=== PATIENT | male | born 1940 | race Caucasian/White ===

== ENCOUNTER 2023-06-15 09:25 | Inpatient (IN) ==
[2023-06-15 10:24] LABS: Venous Bicarbonate HCO3 27.8 mmol/L (24-28)
[2023-06-15 10:28] LABS: Hematocrit 36.6 % (38-53); Hemoglobin 12.8 g/dL (13.2-16.3); Mean Corpuscular Hemoglobin 30.3 pg (27-33); Mean Corpuscular Volume 86.6 fL (80-97); Mean Platelet Volume 7.3 fL (7.5-11.2); Platelet Count 267 10^3/uL (150-450); Red Blood Count 4.22 10^6/uL (4.06-5.63); Red Cell Distribution Width 13.6 % (12-17); White Blood Count 31.2 10^3/uL (3.6-10.2)
[2023-06-15 10:47] LABS: Albumin 3.6 g/dL (3.2-5.2); Albumin/Globulin Ratio 1.1 (1-3); Calcium 10.1 mg/dL (8.6-10.3); Creatinine, Serum 0.67 mg/dL (0.67-1.17); Globulin 3.3 g/dL (2-4); Potassium 4.4 mmol/L (3.5-5.0); Total Bilirubin 1.1 mg/dL (0.2-1.0); Total Protein 6.9 g/dL (6.4-8.9); eGFR CKD-EPI 93.8 (>60)
[2023-06-15 10:51] LABS: ABS Lymphocytes 0.5 10^3/uL (1.0-4.8); ABS Neutrophils 29.6 10^3/uL (1.5-7.6); Eosinophil % 0.1 %; Lymphocyte % 1.7 %
[2023-06-15 10:59] LABS: Urine Appearance Clear; Urine Bilirubin Negative (Negative); Urine Blood Negative (Negative); Urine Color Light-Yellow; Urine Glucose Trace (Negative); Urine Ketones Negative (Negative); Urine Nitrite Negative (Negative); Urine Protein Negative (Negative); Urine Specific Gravity 1.007 (1.002-1.030); Urine Urobilinogen Negative (Negative); Urine pH 6.5 (5.0-8.0)
[2023-06-15] MEDS: Lactated Ringers 1000 ml BAG 1,000 ML IV ONE ×4 (11:09→20:21)
[2023-06-15 11:18] LABS: TSH Ultra Thyroid Stim Horm 0.6 mcIU/mL (0.34-5.60)
[2023-06-15 11:20] LABS: Free T4 1.11 ng/dL (0.61-1.12)
[2023-06-15 11:32] LABS: Urine Bacteria Absent /HPF (Absent); Urine Red Blood Cell Trace(0-2/hpf) /HPF (0-Trace); Urine Squamous Epithelial Cell Present /HPF (Absent); Urine White Blood Cell 2+(11-20/hpf) /HPF (0-Trace)
[2023-06-15] MEDS: Piperacillin/Tazobac 3.375 BAG 3.375 GM/100 ML BAG IV ONE (11:54)
[2023-06-15] MEDS: Vancomycin 1,500 MG in NS 0.9% 250 ml 250 ML IVPB ONE (12:38)
[2023-06-15] MEDS ORDERED: Vancomycin per Pharmacy 1 EA NOTE FOLLOW UP SCH (14:00)
[2023-06-15] MEDS ORDERED: Zosyn per Pharmacy NOTE FOLLOW UP SCH (14:00)
[2023-06-15] MEDS: ZOSYN 3.375 GM Q8H per EXTENDED INFUSION IV SCH (19:23)
[2023-06-15] MEDS: Enoxaparin 40 MG/0.4 ML SYR SUBCUT SCH (20:21)
[2023-06-16] MEDS: Vancomycin 1000 MG in NS 0.9% 250 ML IVPB SCH (00:03)
[2023-06-16] MEDS: ZOSYN 3.375 GM Q8H per EXTENDED INFUSION IV SCH (03:38)
[2023-06-16 06:28] LABS: ABS Lymphocytes 0.9 10^3/uL (1.0-4.8); ABS Monocytes 1.3 10^3/uL (0.0-1.1); ABS Neutrophils 16.8 10^3/uL (1.5-7.6); Eosinophil % 0.1 %; Hematocrit 29.8 % (38-53); Hemoglobin 10.7 g/dL (13.2-16.3); Lymphocyte % 4.7 %; Mean Corpuscular Hemoglobin 30.7 pg (27-33); Mean Corpuscular Hgb Conc 35.8 g/dL (31-36); Mean Corpuscular Volume 85.8 fL (80-97); Mean Platelet Volume 7.3 fL (7.5-11.2); Platelet Count 197 10^3/uL (150-450); Red Blood Count 3.48 10^6/uL (4.06-5.63); Red Cell Distribution Width 13.7 % (12-17)
[2023-06-16 06:45] LABS: Calcium 8.9 mg/dL (8.6-10.3); Creatinine, Serum 0.48 mg/dL (0.67-1.17); Potassium 3.5 mmol/L (3.5-5.0); eGFR CKD-EPI 103.7 (>60)
[2023-06-16 08:15] LABS: C Reactive Protein 77.99 mg/L (<8.01); Magnesium 1.7 mg/dL (1.9-2.7)
[2023-06-16] MEDS: Magnesium Sulfate 2 gm BAG 2 GM/50 ML BAG IVPB ONE (09:49)
[2023-06-16] MEDS: Magnesium Sulfate IV 1GM/100ML 1 GM/100 ML BAG IV ONE (11:26)
[2023-06-16] MEDS ORDERED: Dextrose 50% Syringe 50 ml 25 GM/50 ML SYRINGE IV PUSH PRN (12:59)
[2023-06-16 14:18] LABS: Copper, S 100 mcg/dL (73-129)
[2023-06-16] MEDS: Azithromycin 500 mg/250 ml NS 500 MG/250 ML BAG IVPB SCH (14:27)
[2023-06-16] MEDS: cefTRIAXone 1 gm/50 mL D5W 1 GM/50 ML BAG IV SCH (15:33)
[2023-06-16] MEDS: Sulfamethox/Trimethoprim DS TAB 800/160 mg PO SCH (15:35)
[2023-06-16] MEDS: Nystatin SUSPENSION 100,000 UNITS/ML UDC PO SCH (17:49)
[2023-06-17 06:24] LABS: ABS Eosinophils 0.1 10^3/uL (0.0-0.5); ABS Lymphocytes 1.4 10^3/uL (1.0-4.8); ABS Monocytes 1.5 10^3/uL (0.0-1.1); ABS Neutrophils 14.9 10^3/uL (1.5-7.6); Eosinophil % 0.4 %; Hematocrit 31.3 % (38-53); Lymphocyte % 7.8 %; Mean Corpuscular Hemoglobin 30.6 pg (27-33); Mean Corpuscular Hgb Conc 35.3 g/dL (31-36); Mean Corpuscular Volume 86.5 fL (80-97); Mean Platelet Volume 7.5 fL (7.5-11.2); Platelet Count 207 10^3/uL (150-450); Red Blood Count 3.61 10^6/uL (4.06-5.63); Red Cell Distribution Width 13.8 % (12-17); White Blood Count 17.9 10^3/uL (3.6-10.2)
[2023-06-17 06:57] LABS: Creatinine, Serum 0.55 mg/dL (0.67-1.17); Magnesium 2.1 mg/dL (1.9-2.7); Phosphorus 2.3 mg/dL (2.5-5.0); Potassium 3.6 mmol/L (3.5-5.0); eGFR CKD-EPI 99.6 (>60)
[2023-06-17 08:48] LABS: C Reactive Protein 52.25 mg/L (<8.01)
[2023-06-17] MEDS ORDERED: Vancomycin Trough Check NOTE FOLLOW UP ONE (11:30)
[2023-06-18 06:49] LABS: ABS Basophils 0.1 10^3/uL (0.0-0.1); ABS Lymphocytes 1.5 10^3/uL (1.0-4.8); ABS Monocytes 1.3 10^3/uL (0.0-1.1); ABS Neutrophils 11.9 10^3/uL (1.5-7.6); ABS Nucleated RBC 0.01 10^3/ul; Eosinophil % 0.3 %; Hematocrit 31.5 % (38-53); Lymphocyte % 10.2 %; Mean Corpuscular Hemoglobin 30.3 pg (27-33); Mean Corpuscular Hgb Conc 34.9 g/dL (31-36); Mean Corpuscular Volume 86.9 fL (80-97); Mean Platelet Volume 7.7 fL (7.5-11.2); Platelet Count 214 10^3/uL (150-450); Red Blood Count 3.63 10^6/uL (4.06-5.63); Red Cell Distribution Width 13.9 % (12-17); White Blood Count 14.8 10^3/uL (3.6-10.2)
[2023-06-18 07:07] LABS: Calcium 9.3 mg/dL (8.6-10.3); Creatinine, Serum 0.56 mg/dL (0.67-1.17); Phosphorus 2.6 mg/dL (2.5-5.0); Potassium 4.2 mmol/L (3.5-5.0)
[2023-06-18] MEDS ORDERED: Polyethylene Glycol 3350 17 GM PACKET PO PRN (11:18)
[2023-06-18] MEDS: Magnesium Hydroxide LIQ 30 ML UDC PO PRN (20:19)
[2023-06-19 06:12] LABS: ABS Lymphocytes 1.3 10^3/uL (1.0-4.8); ABS Monocytes 1.2 10^3/uL (0.0-1.1); Eosinophil % 0.3 %; Hematocrit 31.9 % (38-53); Hemoglobin 11.5 g/dL (13.2-16.3); Lymphocyte % 8.1 %; Mean Corpuscular Hemoglobin 31.1 pg (27-33); Mean Corpuscular Volume 86.4 fL (80-97); Mean Platelet Volume 7.5 fL (7.5-11.2); Platelet Count 236 10^3/uL (150-450); Red Blood Count 3.69 10^6/uL (4.06-5.63); Red Cell Distribution Width 13.9 % (12-17); White Blood Count 15.5 10^3/uL (3.6-10.2)
[2023-06-19] MEDS ORDERED: Immune Globulin IV Order (CPOE ENTRY PROTOCOL) IV SCH (12:00)
[2023-06-19] MEDS: [UNRECOGNIZED DRUG - MIXTURE] IV SCH (16:57)
[2023-06-19] MEDS: Insulin GLARGINE 100 un/ml 10 ml VIAL SUBCUT SCH (20:55)
[2023-06-20 06:52] LABS: Hematocrit 31.9 % (38-53); Mean Corpuscular Hgb Conc 34.6 g/dL (31-36); Mean Corpuscular Volume 86.8 fL (80-97); Mean Platelet Volume 6.9 fL (7.5-11.2); Platelet Count 236 10^3/uL (150-450); Red Blood Count 3.67 10^6/uL (4.06-5.63); Red Cell Distribution Width 13.8 % (12-17); White Blood Count 15.3 10^3/uL (3.6-10.2)
[2023-06-20 07:31] LABS: ABS Eosinophils 0.1 10^3/uL (0.0-0.5); ABS Lymphocytes 1.4 10^3/uL (1.0-4.8); ABS Monocytes 1.2 10^3/uL (0.0-1.1); ABS Neutrophils 12.5 10^3/uL (1.5-7.6); ABS Nucleated RBC 0.01 10^3/ul; Eosinophil % 0.9 %; RBC Morphology Normal (Normal)
[2023-06-20 07:57] LABS: Calcium 9.3 mg/dL (8.6-10.3); Creatinine, Serum 0.61 mg/dL (0.67-1.17); Potassium 4.7 mmol/L (3.5-5.0); eGFR CKD-EPI 96.5 (>60)
[2023-06-20] MEDS: Lactated Ringers 1000 ml BAG 1,000 ML IV SCH (22:58)
[2023-06-21] MEDS: Nystatin TOP POWDER 15 GM BTL TOPICAL SCH (06:14)
[2023-06-21 07:55] LABS: Asialo GM1 IgG Antibody Negative (Negative); Asialo GM1 IgM Antibody Negative (Negative); Disialo GD1b IgG Antibody Negative (Negative); Disialo GD1b IgM Antibody Negative (Negative); Monosialo GM1 IgG Antibody Negative (Negative); Monosialo GM1 IgM Antibody Negative (Negative)
[2023-06-22] MEDS: [UNRECOGNIZED DRUG - MIXTURE] IV ONE (12:21)
[2023-06-22] MEDS: Senna TAB 8.6 mg TAB PO PRN (22:07)
[2023-06-23] MEDS: [UNRECOGNIZED DRUG - MIXTURE] IV ONE (09:53)
[2023-06-23 12:03] VITALS: BP 142/55
[2023-06-23 12:26] LABS: Rapid COVID-19 Molecular Undetected (Undetected)
== END 2023-06-23 13:20 | DRG 872 ==
LOC: ED 09:25 → EDHOLD 09:25 → OBSVTOIN 12:23 → SUATTDRO 12:23 → MEDTELE 12:51 → SSU 06-17 20:00
PROVIDERS: ADMIT Hospitalist; ATTEND Internal Medicine